=== PATIENT | female | born 1980 | race Caucasian/White ===

== ENCOUNTER → 2017-07-22 15:38 | Outpatient (CLI) | payer OTHER, MEDICAID, SELFPAY ==
[2017-07-22 18:44] LABS: Urine N gonorrhoeae NOT DETECTED
[2017-07-22 18:47] LABS: Urine Chlamydia NOT DETECTED
== END ==
PROVIDERS: Family Provider Nurse Practitioner; PCP Nurse Practitioner; Visit Provider Obstetrics & Gynecology
DX: Z34.82 Encounter for supervision of other normal pregnancy, second trimester (principal)
CPT/HCPCS: 87491; 87591

== ENCOUNTER → 2017-08-24 12:32 | Outpatient (CLI) | payer OTHER, MEDICAID, SELFPAY ==
--- NOTE | 2017-08-24 12:33 | DI.US.S_ITS ---
PROCEDURE: US OB >= 14 WEEKS FETUS INDICATIONS: anatomy survey OUTSIDE/PRIOR DATING DATA: Last menstrual period (LMP): 04/02/17. LMP-based estimated date of delivery (ELLE): 01/07/18. First dating scan (date and location): 05/30/17. Estimated date of delivery (ELLE) from first dating scan: 01/07/18. TECHNIQUE: Real-time scanning was performed of the fetus, with image documentation and biometric measurements. Endovaginal scanning: No COMPARISON: [facility], , OB >= 14 WEEKS FETUS, 07/22/2017, 16:09. FINDINGS: General: A single living intrauterine gestation is present. Presentation: Vertex. Placenta: Placental position is posterior, without previa. Amniotic fluid index: 11.4 cm, normal range is 5-24 cm. heart rate: 153 beats per minute. Maternal cervical canal: 4.2 cm long. biometrics: Biparietal diameter: 19 weeks 3 days Head circumference: 20 weeks Abdominal circumference: 20 weeks 1 day Femur length: 21 weeks Estimated gestational age from initial scan: 20 weeks 4 days Composite gestational age from present scan: 20 weeks 1 day Estimated weight and percentile: 356 g; 39 percentile Measurement variability for biometric dating: +/- 7 days from 14 weeks to 15 weeks 6 days gestation, +/- 10 days from 16 weeks to 21 weeks 6 days gestation, +/- 2 weeks from 22 weeks to 27 weeks 6 days gestation, +/- 3 weeks for 28 weeks gestation or later. weight reference: 4500 g or EFW >90/95% is considered macrosomia or large for gestational age. EFW <10% is small for gestational age. EFW 5% or less is considered intra-uterine growth restriction. Anatomic survey: Neuro: Ventricles are non-dilated at less than 10 mm. Cisterna magna is normal at 3-11 mm. Cerebellum is normal in size and morphology. Nuchal skin fold: Normal at less than 6 mm between 14-21 weeks gestational age. Face: Nose and lips, facial profile are normal. Spine: No evidence for spina bifida. Heart: 4-chambered heart is present, with normal ventricular outflow tracts. Diaphragm: Diaphragm is intact. Stomach: Left-sided stomach is present. Kidneys: No hydronephrosis. Normal is less than 5 mm in 2nd trimester, less than 7 mm in 3rd trimester. Cord: 3-vessel cord has orthotopic insertion. Bladder: Normal in size. Extremities: All 4 extremities identified. IMPRESSION: 1. Single living IUP redemonstrated and interval growth is normal. 2. Normal anatomic survey. Dictated by: Matthew Moeller [facility] Interpreted: Marce Mas MD on 08/24/2017 at 14:25 Approved by: Marce Mas MD, PhD on 08/24/2017 at 15:12
== END ==
PROVIDERS: Family Provider Nurse Practitioner; PCP Nurse Practitioner; Visit Provider Obstetrics & Gynecology
DX: Z34.82 Encounter for supervision of other normal pregnancy, second trimester (principal); Z3A.20 20 weeks gestation of pregnancy
CPT/HCPCS: 76811

== ENCOUNTER → 2017-12-06 09:41 | Outpatient (CLI) | payer OTHER, MEDICAID, SELFPAY ==
[2017-12-07 13:03] LABS: Strep Grp B PCR POS for Grp B Strep
== END ==
PROVIDERS: Family Provider Nurse Practitioner; PCP Nurse Practitioner; Visit Provider Obstetrics & Gynecology
DX: Z3A.35 35 weeks gestation of pregnancy (principal)
CPT/HCPCS: 87653

== ENCOUNTER 2017-12-16 12:19 | Outpatient (CLI) | payer OTHER, MEDICAID, SELFPAY | END 2017-12-16 12:45 | disposition home or self-care (01) | LOC: LABOR 12:38 → OR 12-19 14:05 | PROVIDERS: Visit Provider Obstetrics & Gynecology | DX: Z34.83 Encounter for supervision of other normal pregnancy, third trimester (principal); Z3A.36 36 weeks gestation of pregnancy | CPT/HCPCS: 59025; 84112; G0378; G0379 ==

== ENCOUNTER 2018-01-06 06:53 | Inpatient (IN) | payer OTHER, MEDICAID, SELFPAY ==
[2018-01-06] MEDS: LACTATED RINGERS 1,000 ML 100 ML IV ×2 (08:15→13:53)
[2018-01-06] MEDS: PENICILLIN G POTASSIUM 5,000,000 UNIT in DEXTROSE 5% IN WATER 250 ML IV (08:15)
[2018-01-06] MEDS: OXYTOCIN PREMIX 30 UNIT/500 ML PLAST..BAG IV (08:16)
[2018-01-06 08:31] LABS: Add Manual Diff / Slide Review NO; Basophils Percent Auto 0.3 % (0-2); Eosinophils Percent Auto 0.5 % (2-4); Hematocrit 38.8 % (36-46); Hemoglobin 13.5 g/dL (12.0-16.0); Lymphocytes Percent Auto 20.1 % (25-40); Mean Corpuscular HGB Conc 34.8 % (30-36); Mean Corpuscular Hemoglobin 32.7 PG (26-34); Mean Corpuscular Volume 93.8 fL (80-100); Monocytes Percent Auto 6.6 % (3-14); Neutrophils Absolute Auto 6300 /uL (3000-5900); Neutrophils Percent Auto 72.5 % (50-75); Platelet Count 154 X10^3/uL (150-400); Red Blood Cell Count 4.13 X10^6/uL (4.0-5.2); Red Cell Distribution Width 13.8 % (11.6-14.8); White Blood Cell Count 8.7 X10^3/uL (4.5-11.0)
[2018-01-06] MEDS: PENICILLIN G POTASSIUM 3,000,000 UNIT/50 ML FROZ.PIGGY 100 UNIT IV (12:25)
[2018-01-06 17:12] VITALS: BP 108/67
[2018-01-06] MEDS: DERMOPLAST SPRAY 20% 60 ML 1 SPRAY TOP (17:24)
[2018-01-06] MEDS: IBUPROFEN 600 MG TABLET PO (19:14)
[2018-01-07 01:25] VITALS: TEMP 36.4
[2018-01-07] MEDS: IBUPROFEN 600 MG TABLET PO ×2 (01:25→07:58)
[2018-01-07] MEDS: DOCUSATE 250 MG CAPSULE PO (07:58)
[2018-01-07 08:11] VITALS: BP 114/75; PULSE 86; RESP 16; TEMP 36.1
--- NOTE | 2018-02-03 13:32 | PM.OBPRVD ---
Delivery date: 01/06/18 Intrapartal events: None Induction method: per pitocin protocol Delivery augmentation: rupture of membranes Delivery monitor: external FHT and external uterine Route of delivery: Episiotomy description: None Laceration description: Perineal - 2nd Degree Delivery repair: vicryl and chromic Estimated blood loss (mL): 150 Anesthesia type: Epidural Complications: None Narrative: Patient was complete and pushed for 27 min. At 2:35 p.m., a live female delivered spontaneously over an intact perineum. Nuchal cord x1 reduced on the perineum. The remainder of the body delivered without difficulty and was placed on mom's abdomen. The cord was double clamped and cut. Pitocin was given in the IV fluids. Cord bloods were obtained. The placenta delivered intact with a 3 vessel cord at 2:39 p.m.. Fundus was massaged to firm. A second-degree laceration was repaired in the usual fashion after 10 cc of 1% lidocaine were injected. Hemostasis was achieved. Apgars 7 at 1 min and 9 at 5 min. Weight 6 lb 13.77 oz. Epidural analgesia. . Mom and infant stable to recovery. Plan for aftercare: To routine care
== END 2018-01-07 13:07 | disposition home or self-care (01) | DRG 807 ==
PROVIDERS: Admitting Provider Obstetrics & Gynecology; Visit Provider Obstetrics & Gynecology
DX: O69.81X0 Labor and delivery complicated by cord around neck, without compression, not applicable or unspecified (principal); Z37.0 Single live birth; Z3A.39 39 weeks gestation of pregnancy; O70.1 Second degree perineal laceration during delivery
CPT/HCPCS: 01967; 36415; 59050; 59400; 85014; 85018; 85025; 86850; 86900; 86901; G0379; J2540; J2590

== ENCOUNTER → 2019-01-23 12:56 | Outpatient (CLI) | payer OTHER, MEDICAID, SELFPAY ==
[2019-01-23 15:33] LABS: Urine Chlamydia NOT DETECTED; Urine N gonorrhoeae NOT DETECTED
== END ==
PROVIDERS: Visit Provider Obstetrics & Gynecology
DX: Z11.3 Encounter for screening for infections with a predominantly sexual mode of transmission (principal); Z34.81 Encounter for supervision of other normal pregnancy, first trimester; Z3A.08 8 weeks gestation of pregnancy
CPT/HCPCS: 87491; 87591

== ENCOUNTER 2019-03-01 09:44 | Emergency (ER) | payer OTHER, MEDICAID, SELFPAY ==
[2019-03-01 09:48] VITALS: BP 120/72; PULSE 111; RESP 20; TEMP 36.2; O2SAT 100; BMI 30.2
[2019-03-01 11:37] VITALS: BP 111/75; PULSE 97; RESP 22; O2SAT 100
[2019-03-01] MEDS: ACETAMINOPHEN 325 MG TABLET 975 MG PO (11:38)
[2019-03-01] MEDS: PANTOPRAZOLE 20 MG TABLET PO (11:39)
[2019-03-01 12:00] VITALS: BP 115/70; PULSE 90; O2SAT 100
[2019-03-01 12:33] VITALS: BP 109/63; PULSE 87; O2SAT 99
--- NOTE | 2019-03-01 21:01 | ED_ITS ---
HPI - Chest Pain <TONG Ohara - Last Filed: 03/01/19 22:04> General Chief Complaint: Chest Pain Stated Complaint: 13 weeks preg,chest pain Time Seen by Provider: 03/01/19 11:20 Source: patient Mode of arrival: Ambulatory Limitations: no limitations History of Present Illness HPI narrative: This is a 38-year-old female, nonsmoker, who presents to ED with we reproducible left-sided chest discomfort describing as stabbing pain for several days. Patient reports initially she felt the discomfort when she had related nausea and vomiting when she had muscle pulled. Patient reports pain increases with movement, taking deep breaths, or talking. Patient denies fever, chills, cough, dyspnea, cold sweats or nausea vomiting. Patient is currently about 13 weeks EGA with LMP of 11/22/2018, (twin delivery). ELLE is 09/05/2019, IUP has verified twice with ultrasound tests. Patient denies recent prolonged travel, history of blood clots, calf pain or leg swelling. Patient denies vaginal bleeding or abdominal cramping/discomfort. Related Data Home Medications Medication Instructions Recorded Confirmed prenat.vits,michaelle,[id number] 1 tab PO BEDTIME 01/23/19 02/20/19 ibuprofen 600 mg PO Q6HP PRN 03/01/19 03/01/19 Allergies Allergy/AdvReac Type Severity Reaction Status Date / Time No Known Drug Allergies Allergy Unknown Verified 02/20/19 12:00 Review of Systems <TONG Ohara - Last Filed: 03/01/19 22:04> Review of Systems Narrative: General: Denies fever, chills, fatigue, malaise, sweats. HEENT: Denies sinus pain, ear pain, sore throat, difficulty swallowing, dizziness. Respiratory: Denies dyspnea, cough, wheezing, hemoptysis, sputum. Cardiovascular: See HPI Gastrointestinal: Denies nausea, vomiting, abdominal pain, diarrhea, constipation, melena. : Denies dysuria, frequency, incontinence, hematuria, urinary retention. Musculoskeletal: Denies weakness, joint pain or bony pain. Skin: Denies rash, skin lesions, or other. Neurologic: Denies weakness, headache, numbness, change in speech, confusion, seizures, incoordination. Psychiatric: No concerning psychosocial issues. 12-point review of systems is negative except for those stated above. Patient History <TONG Ohara - Last Filed: 03/01/19 22:04> Medical History Gestational diabetes (Acute) Family History Father Cardiomyopathy Grandmother Diabetes mellitus Daughter SVT (supraventricular tachycardia) Social History marital status: household members: children education level: college (7 years) occupational status: unemployed Smoking Status: Never smoker Smoking Status: Never smoker alcohol intake frequency: other Substance Use Type: does not use Exam <TONG Ohara - Last Filed: 03/01/19 22:04> Narrative Exam Narrative: GEN: Alert, oriented x 3, well appearing and nourished, and in no acute distress. Head: Normal cephalic, atraumatic. No scalp or temporal tenderness, palpable mass or rash. EYES: Pupils are equal, round, and reactive to light and accommodation. Extraocular muscles are intact bilaterally. There is no subconjunctival hemorrhage, exudate and sclera non-icteric. ENT: Bilateral auditory canals and tympanic membranes clear. Hearing grossly intact. Nose without bleeding, purulent discharge or deviation. Facial sinuses nontender to palpate. Mucous membrane moist, no mucosal lesion. Throat without erythema, tonsillar hypertrophy or exudate. Uvula in midline, airway patent. Neck: Trachea in midline. No JVD, non-tender without lymphadenopathy. No masses or thyroid megaly. Supple, non-tender and no meningeal signs. CARDIAC: Normal regular rate and tachy rhythm without murmurs, gallops, or rubs. Tenderness to palpate in bilateral chest. No peripheral edema, cyanosis or pallor. Capillary refill is less than 2 seconds. RESPIRATORY: Lungs are clear to auscultate bilaterally. No cough, wheezes, rales, or rhonchi. No stridor, respiratory distress, increase work of breathing, or accessary muscle used. ABD: Abdomen soft, nontender and non-distended. No guarding or rebound tenderness to palpate. Bowel sounds are normal in all 4 quadrants. There is no palpable masses or organomegaly. EXT: Full painless ROM of all extremities with no loss of sensation, strength, effusion or edema. SKIN: Warm, dry, normal color for patient. No erythema, lesions or rash over visible areas. BACK: Nontender without deformity or crepitance. No flank tenderness. NEUROLOGICAL: Alert and oriented to place, time and person. Sensation and motor function intact bilaterally. No facial droops, dysphasia. PSYCHIATRIC: Good judgement and reason, without hallucinations, abnormal affect or abnormal behaviors during the examination. Patient is not suicidal. Initial Vital Signs Initial Vital Signs: Vital Signs Temperature 97.1 F L 03/01/19 09:48 Pulse Rate 111 H 03/01/19 09:48 Respiratory Rate 20 03/01/19 09:48 Blood Pressure 120/72 03/01/19 09:48 Pulse Oximetry 100 03/01/19 09:48 <Stefany Ly DO - Last Filed: 03/02/19 08:59> Initial Vital Signs Initial Vital Signs: Vital Signs Temperature 97.1 F L 03/01/19 09:48 Pulse Rate 111 H 03/01/19 09:48 Respiratory Rate 20 03/01/19 09:48 Blood Pressure 120/72 03/01/19 09:48 Pulse Oximetry 100 03/01/19 09:48 Scores <TONG Ohara - Last Filed: 03/01/19 22:04> GCS Fidencio coma scale eye opening: Spontaneous Fidencio coma scale verbal response: Orientated [place] coma scale motor response: Obey commands [place] coma scale total score: 15 Course <TONG Ohara - Last Filed: 03/01/19 22:04> Orders Ordered: Discontinued Medications Acetaminophen (Tylenol) 975 mg PO NOW ONE Stop: 03/01/19 11:34 Last Admin: 03/01/19 11:38 Dose: 975 mg Documented by: JANIS Pantoprazole Sodium (Protonix) 20 mg PO NOW ONE Stop: 03/01/19 11:34 Last Admin: 03/01/19 11:39 Dose: 20 mg Documented by: JANIS <Stefany Ly DO - Last Filed: 03/02/19 08:59> Orders Ordered: Discontinued Medications Acetaminophen (Tylenol) 975 mg PO NOW ONE Stop: 03/01/19 11:34 Last Admin: 03/01/19 11:38 Dose: 975 mg Documented by: JANIS Pantoprazole Sodium (Protonix) 20 mg PO NOW ONE Stop: 03/01/19 11:34 Last Admin: 03/01/19 11:39 Dose: 20 mg Documented by: JANIS MDM - Chest Pain <TONG Ohara - Last Filed: 03/01/19 22:04> Differential Diagnosis Differential diagnosis: Likely atypical chest pain, costochondritis and other (PE, GERD) Medical Records Data Attestation: I reviewed the patient's medical records. ECG Data Attestation: I personally reviewed and interpreted this ECG as follows: Prior ECG tracings: available for review Interpretation: Sinus tachycardia rate at 106. No ST elevation or depression. Low voltage in precordal leads. MI int 157, Normal QRS duration, QT/QTc 309/371. Previous EKG similar appearance rate in 90's [facility] Narrative Medical decision making narrative: This is a 38-year-old female who is currently about 13 week EGA presents to ED with reproducible chest discomfort without short of breath, dizziness, nausea or vomiting. Patient denies vaginal bleeding or abdominal cramping or discomfort. Patient reports initially felt discomfort when she frequent nausea and vomiting from morning sickness/all day sickness a few weeks ago. EKG showed sinus tachycardia and initial patient's heart rate was in 110's when the patient arrived in ED. lung sounds are clear in bilateral lobes and O2 sat was 99 % in room air without dyspnea or tachypnea. Patient denied recent cold symptoms or asthma symptoms. Patient is low risk for pulmonary embolism given no bilateral lower extremity discomfort, swelling, and denies recent prolonged travel or history of blood clots. Given patient's history, patient's discomfort was treated as costal chondritis and also medicated with PPI for possible acid reflux. Patient reports mildly improved discomfort. Return precautions were discussed with the patient and advised to take [id number]-[id number] Tylenol as needed for discomfort. Patient advised to follow-up with PCP/OB specialist as scheduled. Patient's heart rate has decreased to 88 at rest in ED prior discharged to home. Patient agrees with the treatment plan and verbalized understanding. <Stefany Ly DO - Last Filed: 03/02/19 08:59> ECG Data Attestation: I personally reviewed and interpreted this ECG as follows: Prior ECG tracings: available for review Interpretation: Sinus tachycardia rate 106 p.r. interval [address] elevation depression previous EKGs Discharge Plan Departure Patient Disposition: Home Clinical Impression: Costochondritis Discharge Date/Time: 03/01/19 12:33 Instructions: DI for Costochondritis Activity Restrictions/Additional Instructions: You have been diagnosed with [atypical chest pain, costal chondritis. EKG today looks unremarkable and no changes from the previous EKG]. What to do: *Take your medications as directed. You can take dsxo-kha-uqasoxl Tylenol 650- 1000 mg 4 times a day as needed for discomfort. Rest and avoid lifting heavy objects since this may cause increasing pain. *Follow up with your primary care provider in 2-3 days, call for an appointment. Let them know you were seen in the ED and that we asked you to be seen in follow up. *Return to ED if you have any new, worsening, or concerning symptoms, such as [severe, different type of chest pain, breathing difficulty, fainting episodes, nausea or vomiting, fever or any acute concerns]. Prescriptions: No Action prenat.vits,michaelle,[id number]-[id number] Tablet 1 tab PO BEDTIME RF: 0 ibuprofen 600 MG tablet 600 mg PO Q6HP PRN (Reason: Pain (Scale Score 4-6)) RF: 0 Referrals: Sheila Ceballos MD [Physician] -
== END 2019-03-01 12:33 | disposition home or self-care (01) ==
PROVIDERS: Emergency Provider Nurse Practitioner Family
DX: O26.891 Other specified pregnancy related conditions, first trimester (principal); M94.0 Chondrocostal junction syndrome [Tietze]; Z3A.13 13 weeks gestation of pregnancy
CPT/HCPCS: 93005; 99283

== ENCOUNTER → 2019-04-17 11:03 | Outpatient (CLI) | payer OTHER, MEDICAID, SELFPAY ==
--- NOTE | 2019-04-17 11:04 | DI.US.S_ITS ---
PROCEDURE: US OB >= 14 WEEKS FETUS INDICATIONS: ANATOMY SCAN OUTSIDE/PRIOR DATING DATA: Last menstrual period (LMP): 11/29/18. LMP-based estimated date of delivery (ELLE): 09/05/19. First dating scan (date and location): 04/17/19. Estimated date of delivery (ELLE) from first dating scan: 09/07/19. TECHNIQUE: Real-time scanning was performed of the fetus, with image documentation and biometric measurements. Endovaginal scanning: Not performed today. COMPARISON: [facility], , OB >= 14 WEEKS FETUS, 02/20/2019, 12:24. FINDINGS: General: A single living intrauterine gestation is present. Presentation: Vertex. Placenta: Placental position is posterior, without previa. However, there is a low-lying placenta with the tip of the placental edge to internal cervical os measuring approximately 1.6 cm. Amniotic fluid index: 11.4 cm, normal range is 5-24 cm. heart rate: 149 beats per minute. Maternal cervical canal: 4.4 cm long. Normal lower limit is 2.5 cm. biometrics: Biparietal diameter: 4.0 cm, correlating with 18 weeks and 2 days (this measured at the 3rd percentile). Head circumference: 16.3 cm, correlating with 19 weeks and 1 day. (HC/AC ratio measured at the 8th percentile). Abdominal circumference: 14.9 cm, correlating with 20 weeks and 1 day Femur length: 3.2 cm, correlating with 20 weeks and 0 days Estimated gestational age from initial scan: not applicable. Composite gestational age from present scan: 19 weeks and 4 days Estimated weight and percentile: 323 g which correlates with the 51st percentile based on gestational age. Measurement variability for biometric dating: +/- 7 days from 14 weeks to 15 weeks 6 days gestation, +/- 10 days from 16 weeks to 21 weeks 6 days gestation, +/- 2 weeks from 22 weeks to 27 weeks 6 days gestation, +/- 3 weeks for 28 weeks gestation or later. weight reference: 4500 g or EFW >90/95% is considered macrosomia or large for gestational age. EFW <10% is small for gestational age. EFW 5% or less is considered intra-uterine growth restriction. Anatomic survey: Neuro: Ventricles are non-dilated at less than 10 mm. Cisterna magna is normal at 3-11 mm. Cerebellum is normal in size and morphology. Nuchal skin fold: Normal at less than 6 mm between 14-21 weeks gestational age. Face: Nose and lips, facial profile are normal. Spine: No evidence for spina bifida. Heart: 4-chambered heart is present, with normal ventricular outflow tracts as visualized. Diaphragm: Diaphragm is intact. Stomach: Left-sided stomach is present. Kidneys: No hydronephrosis. Normal is less than 5 mm in 2nd trimester, less than 7 mm in 3rd trimester. Cord: 3-vessel cord has orthotopic insertion. Bladder: Normal in size. Extremities: All 4 extremities identified. However, the feet were not well visualized . The IMPRESSION: 3rd percentile 1. Single living intrauterine gestation with an estimated sonographic gestational age of approximately 19 weeks and 4 days. Expected interval growth has occurred. 2.The bilateral feet were not well visualized. Otherwise, unremarkable anatomic screening survey. 3. Low-lying placenta without evidence for placenta previa. 4. Biparietal diameter measured at the 3rd percentile. The HC/AC ratio measured at the 8th percentile. Followup imaging recommended. Dictated by: Boris Ramos M.D. on 04/17/2019 at 15:30 Approved by: Boris Ramos M.D. on 04/17/2019 at 15:45
== END ==
PROVIDERS: Referring Provider Family Medicine; Visit Provider Family Medicine
DX: Z34.92 Encounter for supervision of normal pregnancy, unspecified, second trimester (principal); Z3A.19 19 weeks gestation of pregnancy
CPT/HCPCS: 76811

== ENCOUNTER → 2019-05-15 09:49 | Outpatient (CLI) | payer OTHER, MEDICAID, SELFPAY ==
--- NOTE | 2019-05-15 09:52 | DI.US.S_ITS ---
PROCEDURE: US OB FOLLOW UP INDICATIONS: ABNORMAL ANATOMY SCAN OUTSIDE/PRIOR DATING DATA: Last menstrual period (LMP): 11/29/18. LMP-based estimated date of delivery (ELLE): 09/05/19. First dating scan (date and location): 04/17/19. Estimated date of delivery (ELLE) from first dating scan: 09/07/19. TECHNIQUE: Real-time scanning was performed of the fetus, with image documentation. Endovaginal scanning: Not performed COMPARISON: [facility], US OB >= 14 WEEKS FETUS, 04/17/2019, 11:15. [facility], OB >= 14 WEEKS FETUS, 02/20/2019, 12:24. [facility], , US OB < 14 WEEKS, 01/23/2019, 9:06. FINDINGS: A single living intrauterine gestation is present. Presentation: Vertex. Placenta: Placental position is anterior, without previa. Amniotic fluid index: 10.0 cm, normal range is 5-24 cm. heart rate: 140 beats per minute. Maternal cervical canal: 4.0 cm long. Normal lower limit is 2.5 cm. Biparietal diameter measures 5.2 cm, 21 weeks 6 days. Biparietal diameter measures 20.9 cm, 23 weeks zero days Abdominal circumference measures 20.0 cm, 23 weeks 6 days Femur length measures 4.5 cm, 24 weeks 6 days. Her graph Normal appearance of the feet. Estimated gestational age from initial scan: 23 weeks 4 days. Composite gestational age based on today's ultrasound measurements 24 weeks zero days. Cephalic index measures approximately 72.5 IMPRESSION: Single living intrauterine fetus in vertex presentation. Normal appearance of the feet. Slight dolichocephalic appearance. Dictated by: Maynor Boyd M.D. on 05/15/2019 at 16:22 Approved by: Maynor Boyd M.D. on 05/15/2019 at 16:27
[2019-05-15 10:33] LABS: Add Manual Diff / Slide Review NO; Basophils Absolute Auto 0 /uL (0-100); Basophils Percent Auto 0.1 % (0-2); Eosinophils Absolute Auto 0 /uL (0-450); Eosinophils Percent Auto 0.5 % (2-4); Hematocrit 38.9 % (36-46); Hemoglobin 13.5 g/dL (12.0-16.0); Lymphocytes Absolute Auto 1800 /uL (1100-4500); Lymphocytes Percent Auto 19.5 % (25-40); Mean Corpuscular HGB Conc 34.7 % (30-36); Mean Corpuscular Hemoglobin 32.4 PG (26-34); Mean Corpuscular Volume 93.3 fL (80-100); Monocytes Absolute Auto 500 /uL (0-900); Monocytes Percent Auto 5.2 % (3-14); Neutrophils Absolute Auto 7000 /uL (1500-7000); Neutrophils Percent Auto 74.7 % (50-75); Platelet Count 168 X10^3/uL (150-400); Red Blood Cell Count 4.17 X10^6/uL (4.0-5.2); Red Cell Distribution Width 13.6 % (11.6-14.8); White Blood Cell Count 9.3 X10^3/uL (4.5-11.0)
[2019-05-15 11:36] LABS: Hepatitis B Surface Antigen NEGATIVE s/c (NEGATIVE); Rubella Antibody IgG 18.5 IU/mL (>15)
[2019-05-15 11:52] LABS: HIV 1 & 2 Ab/Ag 4th Gen Combo NEGATIVE (NEGATIVE); Hep C Virus Ab w/Reflex Quant NEGATIVE s/c (NEGATIVE)
== END ==
PROVIDERS: PCP Family Medicine; Referring Provider Family Medicine; Visit Provider Family Medicine
DX: O28.3 Abnormal ultrasonic finding on antenatal screening of mother (principal); Z3A.24 24 weeks gestation of pregnancy
CPT/HCPCS: 36415; 76816; 80055; 86787; 86803; 86850; 86900; 86901; 87389

== ENCOUNTER → 2019-08-07 09:54 | Outpatient (CLI) | payer OTHER, MEDICAID, SELFPAY ==
[2019-08-08 11:48] LABS: Strep Grp B PCR POS for Grp B Strep
== END ==
PROVIDERS: PCP Family Medicine; Visit Provider Family Medicine
DX: Z34.80 Encounter for supervision of other normal pregnancy, unspecified trimester (principal); Z3A.36 36 weeks gestation of pregnancy
CPT/HCPCS: 87653

== ENCOUNTER → 2019-08-28 15:12 | Outpatient (CLI) | payer OTHER, MEDICAID, SELFPAY ==
[2019-08-31 16:07] LABS: COVID19 Sendout NOT DETECTED (Not Detect)
== END ==
PROVIDERS: PCP Family Medicine; Visit Provider Physician Assistant
DX: Z01.812 Encounter for preprocedural laboratory examination (principal)
CPT/HCPCS: 87635

== ENCOUNTER 2019-08-30 07:17 | Inpatient (IN) | payer OTHER, MEDICAID, SELFPAY ==
--- NOTE | 2019-08-30 | PATH_ITS ---
[facility] Accession Number: [id number] . 01 Material submitted: . placenta - PLACENTA . 02 Diagnosis: Placenta: Placenta parenchyma: Weigh: 672 grams (grove placenta). Chorionic villous maturation is variable, but is consistent with a mature placenta. Moderate to abundant intra- and intervillous fibrin is present. Mild, patchy regions concerning for possible villitis. Patchy regions of perivascular fibrosis; indeterminate significance. Subchorionic fibrin involves approximately 50% of the surface by gross examination. Subamniotic hemorrhage involves approximately 20% of the surface by gross examination. Membranes: Marginally inserted. No chorioamnionitis identified. Umbilical cord: Eccentrically inserted with increased coiling by gross examination. Detached and attached segments measure 35.7 cm in length in aggregate. Three vessels present. No funisitis identified. [facility]V 09/03/2019 1409 Local . 02 Electronically signed: . Ellen Cheek MD, Pathologist NPI- [id number] . 01 Gross description: . Specimen A is received in formalin, labeled with patient identification and placenta, and consists of a 672 g, grove placenta that measures 18.0 x 16.2 x 4.4 cm. The eccentrically inserted, edematous, increased coiling (two coils per 5 cm), trivascular umbilical cord measures 17.2 cm in length and 1.2 cm in diameter. The , edematous, increased coiling, trivascular umbilical cord measures 18.5 cm in length and 1.2 cm in diameter. The marginally inserted membranes are pink-alvardao, smooth, and semiopaque to opaque. The surface is blue-hobbs and dull with radiating vasculature, subchorionic fibrin thrombosis scattering on 50% of the surface, and a 10.2 x 4.0 cm subamniotic hemorrhagic area involving 20% of the surface. The intact and complete marginal surface is hobbs-brown with well-formed, well-demarcated cotyledons. Serially sectioning the specimen reveals a red-brown, spongy cut surface. Hat[employer] Hel[employer] sections are submitted in three cassettes. . Summary of sections: A1 - Membrane roll and payroll representative cross sections of umbilical cord, three pieces. A2 - Hatchery Helper full-thickness placental parenchyma with subchorionic fibrin thrombosis, one piece. A3 - Hatcher[employer] Helper full-thickness uninvolved placental parenchyma, one piece. ([id number]) /[facility] 09/02/2019 0232 Local . 02 Pathologist provided ICD-10: O43.90 . 02 CPT . 426121 Performed at: 01 [facility] Located within [facility] [address] [id number] MD Saulo Jeffers MD Phone: [phone] Performed at: 02 [facility] [place] [address] [place], [place] [id number] MD Marina Salcido MD Phone: [phone]
[2019-08-30 08:07] LABS: Add Manual Diff / Slide Review NO; Basophils Absolute Auto 100 /uL (0-100); Basophils Percent Auto 0.5 % (0-2); Eosinophils Absolute Auto 0 /uL (0-450); Eosinophils Percent Auto 0.3 % (2-4); Hematocrit 38.9 % (36-46); Hemoglobin 13.6 g/dL (12.0-16.0); Lymphocytes Absolute Auto 1900 /uL (1100-4500); Lymphocytes Percent Auto 17.9 % (25-40); Mean Corpuscular Hemoglobin 33.3 PG (26-34); Monocytes Absolute Auto 600 /uL (0-900); Neutrophils Absolute Auto 7800 /uL (1500-7000); Neutrophils Percent Auto 75.3 % (50-75); Platelet Count 132 X10^3/uL (150-400); Red Blood Cell Count 4.09 X10^6/uL (4.0-5.2); Red Cell Distribution Width 14.1 % (11.6-14.8); White Blood Cell Count 10.4 X10^3/uL (4.5-11.0)
[2019-08-30] MEDS: PENICILLIN G POTASSIUM 5,000,000 UNIT in DEXTROSE 5% IN WATER 250 ML IV (08:14)
[2019-08-30] MEDS: LACTATED RINGERS 1,000 ML 100 ML IV ×3 (08:14→17:34)
--- NOTE | 2019-08-30 08:31 | PM.OBHP.1 ---
OB HPI Date/Time Date of admission: 08/30/19 Date Patient Seen: 08/30/19 Time Patient Seen: 08:32 History of Present Condition Chief complaint: MATERNITY : 4 Para: 4 Estimated Date of Delivery: 09/05/19 Estimated Gestational Age (weeks): 39w1d Narrative: Melissa Rollins is a 39 year old at 39w1d who presents for IOL due to hx of very rapid labor and being GBS positive. Pt denies any significant contractions, vaginal bleeding, LOF. She has been feeling her baby move regularly. Indications Indication for induction OB: other (hx of very rapid labor) History of Present care: good care, initiated at week # (7) and pounds weight gain (40) Dating criteria: based on 1st trimester US only Ultrasounds: normal 1st trimester US and normal mid trimester US (dolichocephalic head - normal u/s with MFM) Obstetrical complications: none Medical complications: none Preadmission Labs Blood type: B (+) positive -: Antibody screen: negative, GBS status: positive, HBsAG: negative, HIV: negative and RPR/VDLR: negative -: Rubella: immune and Varicella: immune HCT: 38.9 HCAB: negative Urine: Negative Narrative: Historically failed glucola. Checked fasting and 2hr PP blood sugars for over a week and all normal range. Prior (ies) History: 02/16/12 - forceps delivery at 40wks, female, 7lb7oz 04/06/16 - twin delivery at 36wks, 5lb female and 6lb3oz female, vaginal deliveries 01/06/18 - at 39w6d, [id number] Evaluation Evaluation Baseline heart rate: 150 Variability: Moderate (11-25) monitor accelerations: Present monitor decelerations: Absent Category of Tracing: I Cervical dilation (cm): 3 Cervical effacement (%): 50 station: -2 Laboratory results: Laboratory Tests 08/30/19 08:00 WBC 10.4 RBC 4.09 Hgb 13.6 Hct 38.9 MCV 95.0 MCH 33.3 MCHC 35.0 RDW 14.1 Plt Count 132 L Neut % (Auto) 75.3 H Lymph % (Auto) 17.9 L Sunflower % (Auto) 6.0 Eos % (Auto) 0.3 L Baso % (Auto) 0.5 Neut # (Auto) 7800 H Lymph # (Auto) 1900 Sunflower # (Auto) 600 Eos # (Auto) 0 Baso # (Auto) 100 PFS Medical History (Updated 03/16/19 @ 00:00 by ) Gestational diabetes (Acute) Family History Father Cardiomyopathy Grandmother Diabetes mellitus Daughter SVT (supraventricular tachycardia) Social History marital status: household members: children education level: college (7 years) occupational status: unemployed Smoking Status: Never smoker Meds Home Medications and Allergies Home Medications Medication Instructions Recorded Confirmed Type prenat.vits,michaelle,[id number] 1 tab PO BEDTIME 01/23/19 08/14/19 History ibuprofen 600 mg PO Q6HP PRN 03/01/19 08/14/19 History Allergies Allergy/AdvReac Type Severity Reaction Status Date / Time No Known Drug Allergies Allergy Unknown Verified 08/14/19 09:09 Exam Narrative Exam Narrative: Gen: NAD, sitting comfortably in bed, appears well CV: RRR, no murmurs Resp: clear to auscultation bilaterally Abd: soft, nontender, nondistended, gravid Ext: trace edema Objective Labs Result Diagrams: 08/30/19 08:00 Labs: Laboratory Results - last 24 hr 08/30/19 08:00 WBC 10.4 RBC 4.09 Hgb 13.6 Hct 38.9 MCV 95.0 MCH 33.3 MCHC 35.0 RDW 14.1 Plt Count 132 L Neut % (Auto) 75.3 H Lymph % (Auto) 17.9 L Sunflower % (Auto) 6.0 Eos % (Auto) 0.3 L Baso % (Auto) 0.5 Neut # (Auto) 7800 H Lymph # (Auto) 1900 Sunflower # (Auto) 600 Eos # (Auto) 0 Baso # (Auto) 100 Assessment and Plan Assessment and Plan Assessment and Plan narrative: 39yo at 39w1d who presents for IOL due to hx of rapid labor and GBS positive. No complications with . GBS positive, Rh positive. - Expectant management, anticipate - Penicillin for GBS prophylaxis to start now - Epidural for pain control now - Pitocin for IOL, titrate as tolerated - Plan to AROM once adequate prophylaxis with penicillin obtained - FHT reassuring
[2019-08-30] MEDS: PENICILLIN G POTASSIUM 3,000,000 UNIT/50 ML FROZ.PIGGY 100 UNIT IV ×2 (12:21→17:33)
[2019-08-30] MEDS: FENT 2MCG/ML BUPIV 0.125% EPI 200 MCG/100 ML PLAST..BAG 10 MCG EPIDURAL (12:50)
[2019-08-30] MEDS: OXYTOCIN PREMIX 30 UNIT/500 ML PLAST..BAG IV (13:14)
--- NOTE | 2019-08-30 17:05 | PM.OBPNLAB ---
Date/Time Date Patient Seen: 08/30/19 Time Patient Seen: 17:13 Pain Control Pain control: epidural Pelvic Exam Dilation (cm): 6 Effacement (%): 75 station: -2 Contractions Monitor mode: External Pitocin rate (mU/min): 18 Contraction frequency (min): 3 Contraction duration (min): 1 Contraction pattern: Regular Contraction intensity: Strong/Firm Status status: Category l Heart Rate Baseline: 130 Monitor Accelerations: Present Monitor Decelerations: Absent Monitor Variability: Moderate Assessment and Plan Comments: 39yo at 39w1d who presents for IOL due to hx of rapid labor and GBS positive. No complications with . AROM earlier with production of clear fluid. GBS positive, Rh positive. - Expectant management, anticipate - Penicillin for GBS prophylaxis ongoing, has received adequate prophylaxis. - Epidural for pain control in place - Continue Pitocin, titrate as tolerated - FHT reassuring
--- NOTE | 2019-08-30 18:43 | PM.OBPNLAB ---
Date/Time Date Patient Seen: 08/30/19 Time Patient Seen: 18:43 Pain Control Pain control: tolerating well and epidural Pelvic Exam Dilation (cm): 8 Effacement (%): 75 station: 0 Amniotic membrane status: Ruptured Contractions Monitor mode: External Contraction frequency (min): 3 Contraction pattern: Regular Contraction intensity: Strong/Firm Status status: Category l Heart Rate Baseline: 135 Monitor Accelerations: Present Monitor Decelerations: Absent Monitor Variability: Moderate Assessment and Plan Comments: 39yo at 39w1d who presents for IOL due to hx of rapid labor and GBS positive. No complications with . AROM earlier with production of clear fluid. Pt now with hemorrhage of approximately 1,300cc bright red blood with clots. Suspect partial abruption. Thus far, FHT remain reassuring with no decels, and accels present. Maternal BP stable, and not feeling symptomatic. Pt has progressed to 8cm. Will cautiously continue with induction. Pitocin held for now, pt still yoli. Blood bank alerted with products available if needed. Will place 2nd IV now. Hemorrhage kit for readily available in the room. Bleeding has now stopped. Will monitor very closely - if heavy bleeding starts again or FHT showing any signs of distress, will proceed with emergent . Pt aware. OR team and Anesthesia aware. Due to risk factors, will have respiratory therapy present at delivery and plan for cord gases. - Continue GBS prophylaxis with penicillin - Epidural for pain control in place and functioning well
--- NOTE | 2019-08-30 19:11 | P.PNOB_ITS ---
Date/Time Date Patient Seen: 08/30/19 Time Patient Seen: 19:11 Pain Control Pain control: tolerating well and epidural Pelvic Exam Dilation (cm): 8 Effacement (%): 90 station: 0 Amniotic membrane status: Ruptured Contractions Monitor mode: External Contraction frequency (min): 3 Contraction pattern: Regular Contraction intensity: Strong/Firm Status status: Category l Heart Rate Baseline: 150 Monitor Accelerations: Absent Monitor Decelerations: Variable Monitor Variability: Moderate Comments: Single brief variable decel Assessment and Plan Comments: 39yo at 39w1d who presents for IOL due to hx of rapid labor and GBS positive. No complications with . AROM earlier with production of clear fluid. Pt with hemorrhage of approximately 1,300cc bright red blood with clots. Suspect partial abruption. FHT remain reassuring with only single very brief variable decel. Maternal BP stable, and not feeling symptomatic. Pt is currently a loose 8cm, able to stretch to nearly complete, and cervix thinned significantly in the last 30 minutes. No fresh bleeding on cervical exam. Will cautiously continue with induction. Continue to hold Pitocin. Blood bank previously alerted with products available if needed. Placing 2nd IV now. Hemorrhage kit for readily available in the room. No fresh bleeding. Will monitor very closely - if heavy bleeding starts again or FHT showing any signs of distress, will proceed with emergent c- section. Pt aware. OR team and Anesthesia aware. Due to risk factors, will have respiratory therapy present at delivery and plan for cord gases. - Continue GBS prophylaxis with penicillin - Epidural for pain control in place and functioning well
--- NOTE | 2019-08-30 20:34 | PM.OBPRVD ---
Labor & Delivery Delivery date: 08/30/19 Intrapartal events: Abruptio Placenta Induction method: per pitocin protocol Delivery augmentation: rupture of membranes Delivery monitor: external FHT Route of delivery: Episiotomy description: None L&D Laceration Description: Perineal - 2nd Degree Delivery repair: chromic Estimated blood loss (mL): 400 Anesthesia type: Epidural Complications: Intrapartum hemorrhage Narrative: PROCEDURE: at 39w1d presented for elective IOL due to hx of rapid labor and GBS positive and was admitted to Labor and Delivery. The patient progressed through the 1st stage over 6.5 hours. Pain was controlled with an epidural. Intrapartum the pt did have a hemorrhage of approximately 1500cc bright red blood with clots (mixed with some amniotic fluid), thought to be due to partial placental abruption. FHT remained reassuring throughout the entire labor. The pt remained hemodynamically stable. The bleeding stop, and the pt continued to labor without further issues. She was 8cm at the time of the hemorrhage, and rapidly progressed to complete. The patient progressed through the 2nd stage over 11 minutes and delivered a viable female infant with APGARs 8/9 at 19:52 via . The pt cried spontaneously immediately after delivery, and delayed cord clamping was performed. The perineum and vagina were inspected with 2nd degree perineal laceration repaired with 3-O Chromic. The placenta was examined with large clot noted at a peripheral edge. It was sent to pathology. PREPROCEDURE DIAGNOSIS: Intrauterine at 391wd GBS positive RH positive POSTPROCEDURE DIAGNOSIS: Intrauterine at 39w1d, delivered Same as preprocedure Intrapartum hemorrhage Partial placental abruption ROM APPEARANCE: Clear BABY A WEIGHT: 8lb6oz BABY A NUCHAL CORD: Body cord x1 BABY A # CORD VESSELS: 3 BABY A CORD GASES OBTAINED: Venous blood gas - pH 7.330, pCO2 37.5, pO2 32, base excess -6 PLACENTA DELIVERY TIME: 20:09 PLACENTA APPEARANCE: Intact Baby 1: gender: Female Presentation: vertex position: Right Occiput Anterior Placenta delivery description: Spontaneous cord vessel description: 3 Vessels score (1 min): 8 score (5 min): 9 Plan for aftercare: Normal care H/H in the AM
[2019-08-30] MEDS: IBUPROFEN 600 MG TABLET PO (22:03)
[2019-08-31] MEDS: ACETAMINOPHEN 325 MG TABLET 650 MG PO ×2 (04:43→10:15)
[2019-08-31] MEDS: IBUPROFEN 600 MG TABLET PO ×2 (04:43→14:40)
[2019-08-31 06:31] LABS: Hematocrit 29.3 % (36-46); Hemoglobin 10.7 g/dL (12.0-16.0)
[2019-08-31] MEDS: DERMOPLAST SPRAY 20% 60 ML 1 SPRAY TOP (09:17)
[2019-08-31] MEDS: PRENATAL VIT,CALC/IRON/FOLIC 1 TABLET 1 TAB PO (09:18)
[2019-08-31] MEDS: DOCUSATE 100 MG CAPSULE PO (09:18)
--- NOTE | 2019-08-31 13:14 | P.DS_ITS ---
Discharge Providers Provider Date of admission: 08/30/19 07:17 Discharge Date: 08/31/19 Primary care physician: Sheila Ceballos MD Consults: 08/31/19 20:33 Consult to Household Refrigerator Mechanic Routine Comment: Discharge provider: Sheila Ceballos MD Summary Hospital Course Date Patient Seen: 08/31/19 Time Patient Seen: 08:00 Procedures: Spontaneous vaginal delivery Hospital Course: The pt was admitted for IOL due to hx of rapid labor and GBS positive. She received an epidural for pain control. AROM was performed with production of clear fluid. Pitocin was titrated to adequate contractions. The pt had a hemorrhage of approximately 1500cc intrapartum that spontaneously resolved without any inciting event. It was thought to be due to a partial placental abruption. The pts BP remained stable and FHT reassuring throughout. The pt progressed to complete and had an of a viable baby girl at 19:52 on 08/29. Placenta was noted to have a large clot at a lateral edge, suggestive of abruption. A second degree perineal laceration was repaired. , there were no complications. She was voiding, ambulating, and passing flatus at the time of discharge. Her lochia was decreasing appropriately. Her pain was well controlled. She was with good latch. She will f/u with Dr Jarrell in 6 weeks for her check. Peripartum Data Infant Delivery Method: Natural Vaginal Laceration description: Perineal - 2nd Degree Episiotomy description: None Procedures: Spontaneous vaginal delivery complications: none [place] 1: Gender: Female Disposition of : home Discharge Diagnosis (1) (spontaneous vaginal delivery): Status: Acute (2) Intrapartum hemorrhage: Status: Acute (3) Placental abruption: Status: Acute Status at Discharge Cognitive/behavioral status at discharge: oriented Functional status at discharge: independent ambulation Overall status at discharge: patient is progressing back to baseline Time Spent with Patient Time attestation: Total time spent providing and/or coordinating discharge servi diana: Objective Labs Result Diagrams: 08/31/19 06:10 Labs: Laboratory Results - last 24 hr 08/30/19 08/31/19 08:00 06:10 Hgb 10.7 L Hct 29.3 L Blood Type B Positive Antibody Screen Negative Crossmatch See Detail Discharge Plan Discharge Plan Patient Disposition: Home Discharge orders & Medications Prescriptions: New acetaminophen 325 mg Tablet 650 mg PO Q6HR PRN (Reason: Pain, Mild (1-3)) Qty: 30 RF: 0 Dermoplast (with menthol) 20-0.5 % Aerosol 1 spray topical Q1HR PRN (Reason: perineal pain) Qty: 56 RF: 0 docusate sodium [DOK] 100 mg Capsule 100 mg PO DAILY Qty: 30 RF: 0 ibuprofen 600 mg Tablet 600 mg PO Q6HR PRN (Reason: Pain, Mild (1-3)) Qty: 30 RF: 0 Sxj-M-Lndjur Cream 1 applic topical PRN PRN (Reason: Tenderness) Qty: 15 RF: 0 Continued prenat.vits,michaelle,[id number] Tablet 1 tab PO BEDTIME RF: 0 Follow up/Referrals: Vanessa Jarrell MD [Physician] - 6 Weeks (Pt has follow up appointment with Dr. Jarrell on 10/11/2019 @ 1400) Sheila Ceballos MD [Primary Care Provider] - Diet/Activity/Treatments Diet: Diet as Tolerated and Regular Skin/Wound/Dressing Care Report to your healthcare provider any signs of infection, such as:: chills, fever, increased pain and unusual drainage Visit Report/Discharge Packet Instructions: DI for Labor and Delivery, Vaginal Stand Alone Forms: Discharge: Care Visit Report Forms: Patient Portal/API, Stroke Signs & Symptoms Discharge Data Primary Care Provider: Sheila Ceballos Discharges patient from system. Discharge Date/Time: 08/31/19 18:25
[2019-08-31 15:14] VITALS: BP 110/78; PULSE 101; RESP 18; TEMP 36.9
== END 2019-08-31 18:25 | disposition home or self-care (01) | DRG 807 ==
PROVIDERS: Admitting Provider Family Medicine; PCP Family Medicine; Referring Provider Family Medicine; Visit Provider Family Medicine
DX: O99.824 Streptococcus B carrier state complicating childbirth (principal); Z37.0 Single live birth; Z3A.39 39 weeks gestation of pregnancy; O45.8X3 Other premature separation of placenta, third trimester; O70.1 Second degree perineal laceration during delivery; Z01.812 Encounter for preprocedural laboratory examination; Z11.59 Encounter for screening for other viral diseases
CPT/HCPCS: 01967; 36415; 59050; 59400; 85014; 85018; 85025; 86850; 86900; 86901; 87635; G0379; J2540; J2590

== ENCOUNTER 2021-06-02 19:51 | Emergency (ER) | payer OTHER, MEDICAID, SELFPAY ==
[2021-06-02 19:55] VITALS: BP 122/86; PULSE 95; RESP 20; TEMP 36.7; O2SAT 98
--- NOTE | 2021-06-02 22:42 | PC.NURSE ---
pt given water and updated on plan of care
--- NOTE | 2021-06-02 23:35 | ED.EYEPROB ---
HPI - Eye Problem General Chief complaint: Eye Problems Stated complaint: lt eye irritation. no known injury Time Seen by Provider: 06/02/21 23:15 Source: patient Mode of arrival: Ambulatory History of Present Illness HPI Narrative: Otherwise healthy 41-year-old woman who is currently presents with left eye irritation. She notes that it seemed a bit irritated last night and over the course of today gotten increasingly pink more irritated feels that there is something in the lateral portion of the eye and then began throbbing and stinging. She reports no obvious trauma, does not recall any foreign body to the eye. She is having no visual disturbances or changes, headaches, fevers face pain or ear pain. Related Data Home Medications Medication Instructions Recorded Confirmed prenat.vits,michaelle,[id number] 1 tab PO BEDTIME 01/23/19 10/17/19 Previous Rx's Medication Instructions Recorded acetaminophen 325 mg tablet 650 mg PO Q6HR PRN #30 tab 08/31/19 docusate sodium 100 mg capsule 100 mg PO DAILY #30 cap 08/31/19 (DOK) ibuprofen 600 mg tablet 600 mg PO Q6HR PRN #30 tab 08/31/19 ofloxacin 0.3 % eye drops 2 drp EYE-LEFT QID 5 Days #5 ml 06/02/21 Allergies Allergy/AdvReac Type Severity Reaction Status Date / Time No Known Drug Allergies Allergy Unknown Verified 10/17/19 14:39 Review of Systems Review of Systems Narrative: Remainder of complete review of systems is otherwise unremarkable except for that included in the HPI. Patient History Medical History (Updated 06/02/21 @ 23:39 by Shari Abarca MD) Gestational diabetes Family History Father Cardiomyopathy Grandmother Diabetes mellitus Daughter SVT (supraventricular tachycardia) Social History marital status: household members: children education level: college (7 years) occupational status: unemployed Smoking Status: Never smoker Smoking Status: Never smoker alcohol intake frequency: other Substance Use Type: does not use Exam Initial Vital Signs Initial Vital Signs: Vital Signs Temperature 98.1 F 06/02/21 19:55 Pulse Rate 95 H 06/02/21 19:55 Respiratory Rate 20 06/02/21 19:55 Blood Pressure 122/86 06/02/21 19:55 Pulse Oximetry 98 06/02/21 19:55 General: Alert appropriate in no acute distress HEENT: This clear of the left eye is injected. Visual acuity is appropriate bilaterally. Cornea and sclera are normal to gross observation. With a slit lamp exam there are no obvious foreign bodies abrasions or ulcerations. With fluorescein staining to the left eye no dendritic structures, ulcerations. There is no significant flare in the anterior chamber and no pain with pupillary constriction. Respiratory: Able to speak in full sentences, no obvious respiratory distress Skin: No obvious rashes, warm and dry Neurologic: Grossly intact no obvious asymmetries or abnormalities Psych: appropriate insight and affect, cooperative Course Orders Ordered: Discontinued Medications Fluorescein Sodium (Fluorescein 1 Mg Strip) 1 mg EYE-LEFT NOW ONE Stop: 06/02/21 22:35 Gentamicin Sulfate (Gentamicin 3.5 Gm Ophth Oint) 1 applic EYE-LEFT NOW ONE Stop: 06/02/21 23:35 Proparacaine HCl (Proparacaine 0.5% Ophth [place]) 2 drops EYE-LEFT NOW ONE Stop: 06/02/21 22:35 Vital Signs Vital signs: Vital Signs - 8 hr 06/02/21 19:55 Temperature 98.1 F Pulse Rate 95 H Respiratory Rate 20 Blood Pressure 122/86 Pulse Oximetry 98 MDM - Eye Problem MDM Narrative Medical decision making narrative: 41-year-old woman with increasing irritation in the left eye for the last 24 hours. Slit lamp exam does not suggest acute viral infection, foreign body or corneal ulcer. Total exam is most consistent with a developing bacterial conjunctivitis on the left side. She is given gentamicin ointment to use tonight until a prescription of ofloxacin can be picked up tomorrow. We reviewed precautions and questions were answered. She is safe for home discharge Discharge Plan Departure Patient Disposition: Home Clinical Impression: Bacterial conjunctivitis Instructions: DI for Conjunctivitis Activity Restrictions/Additional Instructions: Thank you for coming in today There is no sign of a foreign body or injury to your eye. You do appear to have a bacterial conjunctivitis. Please pick up operator the [facility] and begin using them tomorrow. If you find that you are getting worse or having vision difficulties you do need to return to the ER Prescriptions: New ofloxacin 0.3 % drops 2 drp EYE-LEFT QID 5 Days Qty: 5 0RF No Action prenat.vits,michaelle,[id number] Tablet 1 tab PO BEDTIME 0RF acetaminophen 325 mg Tablet 650 mg PO Q6HR PRN (Reason: Pain, Mild (1-3)) Qty: 30 0RF docusate sodium [DOK] 100 mg Capsule 100 mg PO DAILY Qty: 30 0RF ibuprofen 600 mg Tablet 600 mg PO Q6HR PRN (Reason: Pain, Mild (1-3)) Qty: 30 0RF Referrals: Sheila Ceballos MD [Primary Care Provider] -
[2021-06-02] MEDS: PROPARACAINE 0.5% OPHTH SOL 2 DROPS EYE-LEFT (23:58)
[2021-06-02] MEDS: FLUORESCEIN 1 MG STRIP EYE-LEFT (23:58)
[2021-06-02 23:59] VITALS: BP 124/78; PULSE 85; RESP 16; O2SAT 100
== END 2021-06-03 | disposition home or self-care (01) ==
PROVIDERS: Emergency Provider Emergency Medicine; PCP Family Medicine
DX: O99.893 Other specified diseases and conditions complicating puerperium (principal); H10.9 Unspecified conjunctivitis; B96.89 Other specified bacterial agents as the cause of diseases classified elsewhere
CPT/HCPCS: 99282

== ENCOUNTER → 2024-03-09 12:50 | Outpatient (CLI) | payer OTHER, SELFPAY ==
--- NOTE | 2024-03-09 12:52 | DI.MG.S_ITS ---
BILATERAL DIGITAL SCREENING MAMMOGRAM 3D/2D WITH CAD: 03/09/2024 CLINICAL: Routine screening. Baseline exam. No prior exams were available for comparison. There are scattered areas of fibroglandular density (category b / 25%-50% glandular tissue). Current study was also evaluated with a Computer Aided Detection (CAD) system. No significant masses, calcifications, or other findings are seen in either breast. IMPRESSION: NEGATIVE There is no mammographic evidence of malignancy. A 1 year screening mammogram is recommended. Based on the Tyrer Cuzick model (a risk assessment model) the patient's lifetime risk is 10.2% and her 10 year risk is 1.5%. According to the ACR, ACS, and NCCN guidelines, an annual breast MRI exam along with mammogram is recommended if the patient's lifetime risk is 20% or greater. This exam was interpreted at Station ID: [id number]. NOTE: For mammograms, a report in lay terms will be sent to the patient. Approximately 15% of breast malignancies will not be visualized mammographically. In the management of a palpable breast mass, a negative mammogram must not discourage biopsy of a clinically suspicious lesion. Electronically Signed By: aMsood ladd/aguilar:03/09/2024 13:41:14 letter sent: Normal Exam ACR BI-RADS Category 1: Negative
== END ==
LOC: MAMMO 12:51
PROVIDERS: PCP Family Medicine; Referring Provider Family Medicine; Visit Provider Family Medicine
DX: Z12.31 Encounter for screening mammogram for malignant neoplasm of breast (principal)
CPT/HCPCS: 77063; 77067